=== PATIENT | male | born 1960 | race Caucasian/White ===

== ENCOUNTER → 2017-05-23 | Outpatient (CLI) | payer BC | LOC: RAH 08:48 | PROVIDERS: ATTEND Internal Medicine Gastroenterology | DX: K21.9 Gastro-esophageal reflux disease without esophagitis (principal); K44.9 Diaphragmatic hernia without obstruction or gangrene; K29.90 Gastroduodenitis, unspecified, without bleeding | CPT/HCPCS: 74240 ==

== ENCOUNTER → 2023-05-12 | Outpatient (CLI) | payer BC | END | disposition home or self-care (01) | LOC: RAH 10:46 | PROVIDERS: ATTEND Urology | DX: N28.89 Other specified disorders of kidney and ureter (principal); N20.0 Calculus of kidney | CPT/HCPCS: 74018; 76100 ==